=== PATIENT | male | born 1935 | race Caucasian/White ===

== ENCOUNTER → 2016-11-29 | Outpatient (CLI) | payer MEDICARE ==
[~2016-11-29] MED LIST: ALLOPOW4 PO; DOXE100C4 PO; EZET10 PO; LEVO.05 PO; PRIL10CA PO; ROSU5 PO
[2016-11-29 13:31] LABS: AUTOMATED NEUTROPHIL # 2.5 TH/MM3 (1.8-7.7); BASOPHIL % 0.4 % (0.0-2.0); EOSINOPHIL # 0.2 TH/MM3 (0-0.4); EOSINOPHIL % 5.6 % (0.0-4.0); HEMATOCRIT 37.8 % (39.0-51.0); HEMO FLAGS DIFF FINAL; LYMPH % 24.3 % (9.0-44.0); MEAN CELL VOLUME 90.6 FL (80.0-100.0); MEAN CORPUSCULAR HEMOGLOBIN 31.5 PG (27.0-34.0); MEAN CORPUSCULAR HGB CONC 34.7 % (32.0-36.0); MONO % 10.4 % (0.0-8.0); NEUT % 59.3 % (16.0-70.0); PLATELET COUNT 196 TH/MM3 (150-450); RED BLOOD COUNT 4.17 MIL/MM3 (4.50-5.90); RED CELL DISTRIBUTION WIDTH 13.4 % (11.6-17.2); WHITE BLOOD COUNT 4.2 TH/MM3 (4.0-11.0)
[2016-11-29 14:00] LABS: ALKALINE PHOSPHATASE 84 U/L (45-117); ALT (GPT) 26 U/L (12-78); ANION GAP 7 MEQ/L (5-15); AST (GOT) 27 U/L (15-37); BICARBONATE 25.7 MEQ/L (21.0-32.0); BLOOD UREA NITROGEN 17 MG/DL (7-18); CHLORIDE 110 MEQ/L (98-107); FREE T4 1.12 NG/DL (0.76-1.46); GLOMERULAR FILTRATION RATE 63 ML/MIN (>89); GLUCOSE,FASTING 91 MG/DL (74-99); HDL CHOLESTEROL 78.1 MG/DL (40.0-60.0); LDL CHOLESTEROL 75 MG/DL (0-99); POTASSIUM 4.1 MEQ/L (3.5-5.1); SODIUM (NA) 143 MEQ/L (136-145); TOTAL BILIRUBIN ADULT 0.5 MG/DL (0.2-1.0)
== END ==
LOC: PLAB 08:26
PROVIDERS: ATTEND Family Medicine
DX: E78.2 Mixed hyperlipidemia (principal); E03.9 Hypothyroidism, unspecified
CPT/HCPCS: 36415; 80053; 80061; 84439; 84443; 85025

== ENCOUNTER → 2017-02-12 | Outpatient (CLI) | payer MEDICARE ==
[2017-02-12 14:01] LABS: FREE T4 1.05 NG/DL (0.76-1.46)
== END ==
LOC: PLAB 10:29
PROVIDERS: ATTEND Family Medicine
DX: E03.9 Hypothyroidism, unspecified (principal)
CPT/HCPCS: 36415; 84439; 84443

== ENCOUNTER → 2017-07-17 | Day surgery (SDC) | payer MEDICARE ==
[~2017-07-17] VITALS: Ht 172.7 cm; Wt 79.1 kg
[~2017-07-17] MED LIST changes: +ALLO100T PO; +ATROPINE SULFATE 1% OPHT SOLN 2 ML BTL ONE; +CHLORHEXIDINE GLUCONATE 2 % 1 PACK (2 CLOTHS) TOPICAL PRN; +DEXAMETHASONE SOD PHOS 4 MG/ML VIAL ONE; +DO NOT ADM ANY ANTICOAGULANT DRUGS PRN; +EPINEPHrine HCL (1:1000) 1 MG/ML VIAL ONE; +LACTATED RINGER'S 1000 ML IV PRN; +LEVO88TA2 PO; +METOPROLOL TARTRATE 25 MG TAB PO PRN; +OMEP10CA PO; +POVIDONE IODINE 5% (ANTISEPSIS KIT) 4 APPLICATIONS EACH NARE PRN; +SODIUM CHLORID 0.9% 500 ML IV PRN; +STERILE WATER FOR INJECTION 20 ML VIAL ONE; +TOBRAMYCIN/DEXAMETHASONE OPTH OINT 3.5 GM TUBE ONE; +TRIAMCINOLONE ACETONIDE 40 MG/ML VIAL ONE; +ceFAZolin INJ 1,000 MG VIAL ONE
[2017-07-17] MEDS: ATROPINE SULFATE 1% OPHT SOLN 5 ML BTL LEFT EYE SCH ×4 (12:06→12:53)
[2017-07-17] MEDS: CYCLOPENTOLATE HCL 1% OPHT SOLN 2 ML BTL LEFT EYE SCH ×4 (12:07→12:53)
[2017-07-17] MEDS: PHENYLEPHRINE HCL 2.5% OPTH SOLN 2 ML BTL LEFT EYE SCH ×4 (12:08→12:54)
[2017-07-17] MEDS: TROPICAMIDE 1% OPHT SOLN 15 ML BTL LEFT EYE SCH ×4 (12:08→12:54)
[2017-07-17 12:16] LABS: AUTOMATED NEUTROPHIL # 2.2 TH/MM3 (1.8-7.7); BASOPHIL % 0.7 % (0.0-2.0); EOSINOPHIL # 0.1 TH/MM3 (0-0.4); EOSINOPHIL % 2.9 % (0.0-4.0); HEMO FLAGS DIFF FINAL; LYMPH % 24.3 % (9.0-44.0); LYMPHOCYTE # 0.9 TH/MM3 (1.0-4.8); MEAN CELL VOLUME 93.4 FL (80.0-100.0); MEAN CORPUSCULAR HEMOGLOBIN 31.1 PG (27.0-34.0); MEAN CORPUSCULAR HGB CONC 33.3 % (32.0-36.0); MONO % 13.8 % (0.0-8.0); NEUT % 58.3 % (16.0-70.0); PLATELET COUNT 168 TH/MM3 (150-450); RED BLOOD COUNT 3.85 MIL/MM3 (4.50-5.90); RED CELL DISTRIBUTION WIDTH 14.3 % (11.6-17.2); WHITE BLOOD COUNT 3.7 TH/MM3 (4.0-11.0)
--- NOTE | 2017-07-17 12:46 | EKG ---
Date Performed: 07/17/2017 Time Performed: 11:34:26 PTAGE: 82 years EKG: Sinus rhythm NORMAL ECG PREVIOUS TRACING : 07/27/2015 11.19 DOCTOR: Abe Kennedy Interpretating Date/Time 07/17/2017 12:44:01
[2017-07-17 16:55] VITALS: BP 135/79; PULSE 65; RESP 18; TEMP 97.4; O2SAT 98
--- NOTE | 2017-07-17 21:31 | MP ---
cc: BERNABE SHARMA M.D. DATE OF SURGERY: 07/17/2017 PREOPERATIVE DIAGNOSIS: Rhegmatogenous retinal detachment left eye. POSTOPERATIVE DIAGNOSIS Rhegmatogenous retinal detachment left eye. PROCEDURE: Trans pars plana vitrectomy with endolaser photocoagulation, gas fluid exchange, left eye. SURGEON Dr. Bernabe Sharma ANESTHESIA General laryngeal mask anesthesia. INDICATIONS FOR PROCEDURE: Mr. Lozoya is an 82-year-old gentleman who noted a shadow in his vision of his left eye beginning a couple of days ago. 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 This detachment went from approximately 2 o'clock and continued inferiorly and around, and then up again to about 11 o'clock. The macula was off shallowly. The visual acuity in that left eye was 20/80 J7. The retinal break could not be found at the time of the examination but was suspected to be between 5 and 7 o'clock. The patient was told of the situation and the need for surgery. A primary vitrectomy was recommended to try and repair the detachment. The risks and benefits of surgery were discussed with the patient. Informed consent was obtained. DESCRIPTION OF PROCEDURE: He was brought to [facility] operating room #1 on the [facility] and the microscope was brought around and adjusted, after the sterile and usual prep to the left eye. At this time an appropriate time-out was called with the surgical team agreeing to the surgical site and proposed procedure. The lid speculum was placed. The Vladimir 23-gauge vitrectomy system was used with the first trocar cannula designed for the chandelier infusion. Line was placed at approximately 3:30 o'clock and verified to be in the posterior chamber. The infusion cannula was affixed to it and turned on, two additional trocar cannulas were placed at 10 and 2 o'clock. The eye was entered with the endo ornamental metal erector light pipe and vitrectomy cutter, after first introducing a small amount of Kenalog to help visualize the vitreous. Using the flat contact lens a core vitrectomy was carried out. The retina was flattened under Perfluoron midway in the mid periphery stabilizing the retina so the more peripheral vitreous could be removed using the biome wide angle viewing system. Endolaser photocoagulation was then placed in the periphery 360 degrees using a power of 250 milliwatts and 0.1 second exposure and the endo-lighted endolaser probe. The Perfluoron was then removed and a gas fluid exchange was performed. Next a 15% mixture of C3F8 gas was slowly insufflated through the eye, then the cannulas were removed one by one, tamponade of the site with a cotton swab and diathermy to the overlying conjunctival wound. The infusion cannula was removed lastly and that site also tamponade and treated with diathermy leaving the eye formed and with good pressure and no visible air leaks. Atropine drops were placed on the cornea followed by subconj injection of Ancef 125 mg in half cc and Decadron 2 mg in half cc. The lid speculum was removed and the patient was undraped. TobraDex ointment was placed on the cornea and then the left eye was patched and shielded. The patient had the laryngeal mask removed in the room and was returned to recovery in good condition lying on his right side. When awake and alert he will be asked to perform face-down positioning. MD OBIE Choi/KODY /3:49 PM /9:18 PM
== END | disposition home or self-care (01) ==
LOC: HSDC 10:47
PROVIDERS: ATTEND Ophthalmology
DX: H33.002 Unspecified retinal detachment with retinal break, left eye (principal); I10 Essential (primary) hypertension
CPT/HCPCS: 00145; 67108; 85025; 93005; J0171; J0690; J1100; J3301; J7120

== ENCOUNTER → 2018-01-23 | Outpatient (CLI) | DX: E03.9 Hypothyroidism, unspecified (principal); E78.2 Mixed hyperlipidemia; M10.9 Gout, unspecified ==